=== PATIENT | male | born 1955 | race Caucasian/White ===

== ENCOUNTER 2024-11-03 08:38 | Outpatient (CLI) | payer MEDICARE, OTHER, SELFPAY ==
--- OUTSIDE RECORDS SUMMARY | 2024-11-03 08:46 | XMS_ITS | Encounter Summary ---
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 us Historical Provider Final Res ult documented in this encounter Visit Diagnoses Not on filedocumented in this encounter Additional Health Concerns Infection Onset Date Last Indicated Resolved Time COVID: Suspected 01/18/2022 01/18/2022 01/18/2022 1:54 PM CDT documented as of this encounter Care Teams Wheel Cleaner Relationship Specialty Start Date End Date Referral, Self PCP - General 03/10/18 04/19/19 Carmen Longoria MD [address] [address] [facility] [address] [place] [id number] PCP - General Internal Medicine 04/20/19 documented as of this encounter
--- OUTSIDE RECORDS SUMMARY | 2024-11-03 08:46 | XMS_ITS | Encounter Summary ---
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 us Historical Provider Final Res ult documented in this encounter Visit Diagnoses Not on filedocumented in this encounter Additional Health Concerns Infection Onset Date Last Indicated Resolved Time COVID: Suspected 01/18/2022 01/18/2022 01/18/2022 1:54 PM CDT documented as of this encounter Care Teams Ice Cream Mixer Relationship Specialty Start Date End Date Referral, Self PCP - General 03/10/18 04/19/19 Carmen Longoria MD [address] [facility] [address] [place] [id number] PCP - General Internal Medicine 04/20/19 documented as of this encounter
--- OUTSIDE RECORDS SUMMARY | 2024-11-03 08:46 | XMS_ITS | Encounter Summary ---
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 us Historical Provider [facility] JOSEFINA MICHEL Final Result documented in this encounter Visit Diagnoses Not on filedocumented in this encounter Additional Health Concerns Infection Onset Date Last Indicated Resolved Time COVID: Suspected 01/18/2022 01/18/2022 01/18/2022 1:54 PM CDT documented as of this encounter Care Teams Health Care / Medical Job Titles Relationship Specialty Start Date End Date Referral, Self PCP - General 03/10/18 04/19/19 Carmen Longoria MD [facility] [address] [facility] [address] [place] [id number] PCP - General Internal Medicine 04/20/19 documented as of this encounter
--- OUTSIDE RECORDS SUMMARY | 2024-11-03 08:46 | XMS_ITS | Referral Summary ---
Author Organization [facility] [address] [place] [address] Care Team Providers Care Ply Splicer Name Role Phone Carmen Longoria MD Primary Care Provider [phone] Encounters Date Type Department Care Team Description 10/26/2024 Telephone [facility] Medical [facility] Internal Medicine [address] [place] [phone] Carmen Longoria MD Medical Question/Miscellaneous 08/10/2024 Telephone [facility] Medical [facility] Internal Medicine [address] [place] [phone] Carmen Longoria MD 08/09/2024 Telephone [facility] Internal Medicine [address] [place] [phone] Carmen Longoria MD 08/09/2024 1:00 PM DIRECTOR INTEGRATED Office Visit [facility] Medical [facility] Internal Medicine [address] [place] [phone] Carmen Longoria MD Uncontrolled type 2 diabetes mellitus with hyperglycemia (HCC) (Primary Dx); LUIS (obstructive sleep apnea); Mild episode of recurrent major depressive disorder; Essential hypertension; BMI 37.0-37.9, adult; Morbid obesity (HCC); Bilateral leg edema from Last 3 Months Allergies Active Allergy Reactions Criticality Noted Date Comments Amoxicillin-Pot Clavulanate Diarrhea,Hallucinati ons,Nausea And Vomiting Medium 05/20/2013 Miconazole Unknown 11/03/2018 Miconazole Nitrate Unknown 11/03/2018 Niacin Unknown 11/03/2018 Rosuvastatin Other (See comments) Low 10/15/2020 20 mg muscle aches Medications aspirin 81 mg tablet Take 1 tablet (81 mg total) by mouth Active cholecalcifer ol (VITAMIN D-3) 2,000 unit tablet Take by mouth. Act kymberly cyanocobalami n (Vitamin B-12) 1,000 mcg tabletIndicat ions:Preventi on of Vitamin B12 Deficiency Take 1 tablet (1,000 mcg total) by mouth daily Active glucosamine-c hondroitin 500-400 mg capsule Take 1 capsule by mouth Active multivitamin tabletIndicat ions:Vitamin Deficiency Prevention Take 1 tablet by mouth Active naproxen (NAPROSYN) 500 mg tablet TAKE 1 TABLET BY MOUTH TWICE A DAY WITH FOOD 60 tablet 2 10/17/19 20 Active omega-3 fatty acids 1,000 mg capsule Take by mouth Activ e vit A/C/E ac/ZnOx/cupri c oxide (EYE VITAMIN AND MINERALS ORAL) Take by mouth Active valsartan-hyd rochlorothiaz henry (DIOVAN-HCT) 320-25 mg per tablet TAKE 1 TABLET BY MOUTH EVERY DAY 100 tablet 1 05/28/20 24 Active doxazosin (CARDURA) 8 mg tablet TAKE 1 TABLET BY MOUTH NIGHTLY 100 tablet 1 05/28/20 24 Active pen needle, diabetic (BD Ultra-Fine Short Pen Needle) 31 gauge x 5/16 needle USE TO INJECT TRESIBA ONCE DAILY 100 each 3 06/14/20 24 Active atorvastatin (LIPITOR) 40 mg tablet TAKE 1 TABLET BY MOUTH EVERY DAY 90 tablet 07/12/20 24 Active vortioxetine (Trintellix) 20 mg tablet Take 1 tablet (20 mg total) by mouth daily 90 tablet 1 08/09/19 25 Active semaglutide (Ozempic) 0.25 mg or 0.5 mg (2 mg/3 mL) pen injector injection Inject 0.5 mg under the skin once a week 3 mL 5 08/09/19 25 Active insulin glargine (TOUJEO) 300 unit/mL (1.5 mL) pen for injection INJECT 22 UNITS SUBCUTANEOUSLY EVERY DAY 4.5 mL 1 09/07/19 25 Active amLODIPine (NORVASC) 10 mg tablet TAKE 1 TABLET BY MOUTH EVERY DAY 90 tablet 1 10/14/19 25 Active lurasidone (LATUDA) 20 mg tablet TAKE 1 TABLET BY MOUTH EVERY DAY 90 tablet 1 10/14/19 25 Active montelukast (SINGULAIR) 10 mg tablet TAKE 1 TABLET BY MOUTH EVERY DAY 90 tablet 10/15/19 25 Active lurasidone (LATUDA) 20 mg tablet TAKE 1 TABLET BY MOUTH EVERY DAY 90 tablet 1 04/18/20 24 2024 Discontinued amLODIPine (NORVASC) 10 mg tablet TAKE 1 TABLET BY MOUTH EVERY DAY 90 tablet 1 04/18/20 24 2024 Discontinued montelukast (SINGULAIR) 10 mg tablet TAKE 1 TABLET BY MOUTH EVERY DAY 90 tablet 05/31/20 24 2024 Discontinued Active Problems Problem Noted Date Diagnosed Date Bilateral leg edema 08/09/2024 Assessment & Plan (08/09/2024 1:40 PM DIRECTOR INTEGRATED): Patient with trace bilateral leg edema most likely secondary to amlodipine. Patient is asymptomatic so we will not make any changes in his medications Other male erectile dysfunction 01/05/2024 Assessment & Plan (01/05/2024 10:26 AM CDT): Patient with erectile dysfunction. He tried Viagra 25 mg daily and that did not help. He increase dose to 50 mg and he had some erection. Patient continues to have problem keeping erection. We will increase the dose of Viagra to 100 mg p.r.n. and instructions on how to take the medication was discussed and the patient will call for persistent symptoms. Nonrheumatic aortic (valve) stenosis 10/30/2023 Assessment & Plan (10/30/2023 8:54 AM CDT): Asymptomatic and followed by the provider network analyst Onychomycosis 10/14/2021 Assessment & Plan (10/14/2021 3:36 PM CDT): Patient will be started on Diflucan 100 mg once a week for 4 months Morbid obesity 06/03/2021 Assessment & Plan (08/09/2024 1:38 PM DIRECTOR INTEGRATED): BMI Follow-up includes: nutrition counseling. The patient was advised to exercise 5 times a week for 30 minutes each time. We discussed low calorie diet. Discussed lifestyle changes. Assessment & Plan (10/30/2023 7:38 AM CDT): BMI Follow-up includes: nutrition counseling. The patient was advised to exercise 5 times a week for 30 minutes each time. We discussed low calorie diet. Discussed lifestyle changes. Assessment & Plan (04/03/2023 7:47 AM CDT): BMI Follow-up includes: nutrition counseling. The patient was advised to exercise 5 times a week for 30 minutes each time. We discussed low calorie diet. Discussed lifestyle changes. Assessment & Plan (12/03/2022 12:15 PM CDT): BMI Follow-up includes: nutrition counseling. The patient was advised to exercise 5 times a week for 30 minutes each time. We discussed low calorie diet. Discussed lifestyle changes. Assessment & Plan (07/03/2022 7:58 AM DIRECTOR INTEGRATED): BMI Follow-up includes: nutrition counseling. The patient was advised to exercise 5 times a week for 30 minutes each time. We discussed low calorie diet. Discussed lifestyle changes. Assessment & Plan (02/13/2022 10:49 AM CDT): BMI Follow-up includes: nutrition counseling. The patient was advised to exercise 5 times a week for 30 minutes each time. We discussed low calorie diet. Discussed lifestyle changes. Assessment & Plan (10/14/2021 3:36 PM CDT): BMI Follow-up includes: nutrition counseling. The patient was advised to exercise 5 times a week for 30 minutes each time. We discussed low calorie diet. Discussed lifestyle changes. Assessment & Plan (06/03/2021 11:38 AM DIRECTOR INTEGRATED): BMI Follow-up includes: nutrition counseling. The patient was advised to exercise 5 times a week for 30 minutes each time. We discussed low calorie diet. Discussed lifestyle changes. Uncontrolled type 2 diabetes mellitus with hyper glycemia 03/20/2021 Assessment & Plan (08/09/2024 8:05 AM DIRECTOR INTEGRATED): Hemoglobin A1c in July 2024 was 7.0. Continue current medications, discussed low carbohydrate diet, advised to exercise on regular basis, advised to have annual eye exam. We will continue to monitor. Assessment & Plan (07/03/2022 12:29 PM DIRECTOR INTEGRATED): Continue current medications, will add mounjaro 2.5 mg subQ once a week for 4 weeks then 5 mg once a week. Side effects were explained, discussed low carbohydrate diet, advised to exercise on regular basis, advised to have annual eye exam. We will continue to monitor. Assessment & Plan (02/13/2022 10:49 AM CDT): Continue current medications, discussed low carbohydrate diet, advised to exercise on regular basis, advised to have annual eye exam. We will continue to monitor. Assessment & Plan (10/14/2021 3:35 PM CDT): Blood sugar improved significantly. Hemoglobin A1c 7.2. Will continue with current medications. Encouraged low calorie diet and weight loss. Follow-up with lodging facilities manager Assessment & Plan (06/03/2021 11:37 AM DIRECTOR INTEGRATED): Increase Tresiba to 35 units daily. Discussed the importance of diet and exercise and weight loss. Call Accu-Chek readings in 1 week. Repeat A1c before next visit. Advised to have annual eye exam. Assessment & Plan (03/21/2021 2:09 PM CDT): Increase Tresiba to 25 units daily. Continue diet and exercise. Advised to have annual eye exam. He will continue to check his sugar 3 times daily and call us with readings in about 1 week. Will obtain hemoglobin A1c before next visit in couple of months. Lipoma of neck 01/30/2021 Assessment & Plan (01/30/2021 3:14 PM CDT): Patient most likely has lipoma in the neck area. I offered him to see a plastic surgery for excision but he wants to wait on that. BMI 34.0-34.9,adult 01/29/2021 Assessment & Plan (01/30/2021 3:13 PM CDT): BMI Follow-up includes: nutrition counseling. The patient was advised to exercise 5 times a week for 30 minutes each time. We discussed low calorie diet. Discussed lifestyle changes. Chronic rhinitis 02/28/2020 Assessment & Plan (02/28/2020 1:46 PM CDT): Advised to take [place] or Zyrtec on daily basis. He can try as well Flonase nasal spray 1 spray daily. Functional diarrhea 08/22/2019 Encounter for hepatitis C sc reening test for low risk patient 08/22/2019 Mild episode of recurrent major depressive disor mari 05/17/2019 Assessment & Plan (08/09/2024 8:05 AM DIRECTOR INTEGRATED): Controlled on Trintellix and Latuda Assessment & Plan (03/29/2024 7:49 AM CDT): Controlled on Trintellix and Latuda Assessment & Plan (10/30/2023 8:51 AM CDT): Controlled on Trintellix and Latuda Assessment & Plan (04/03/2023 7:47 AM CDT): Controlled on Trintellix Assessment & Plan (12/03/2022 12:15 PM CDT): Controlled on Trintellix Assessment & Plan (07/03/2022 7:58 AM DIRECTOR INTEGRATED): Controlled on current medications and no suicidal ideations Assessment & Plan (02/13/2022 10:49 AM CDT): Controlled on Trintellix Assessment & Plan (10/14/2021 3:35 PM CDT): Managed by the psychiatrist Assessment & Plan (06/03/2021 11:36 AM DIRECTOR INTEGRATED): Managed by the Psychiatry Assessment & Plan (03/21/2021 2:08 PM CDT): Patient said that he feels much better on Trintellix. Will continue the medication Assessment & Plan (01/30/2021 3:11 PM CDT): Patient has recurrent depression. Will stop Lexapro slowly and start him on Trintellix 10 mg daily for 2 weeks then 20 mg daily and will make him a referral to see a psychiatrist for further evaluation. The patient understands to go to the emergency room if he has suicidal ideation Assessment & Plan (06/29/2020 11:41 AM DIRECTOR INTEGRATED): Controlled on medications Assessment & Plan (02/28/2020 1:45 PM CDT): We will increase Lexapro to 20 mg daily and he will call in 1 month for persistent symptoms Assessment & Plan (05/17/2019 3:29 PM CDT): The patient feels much better since he was started on Lexapro. He is controlled and in remission and continue with current treatment Insomnia 09/22/2017 Chronic nonseasonal allergic rhinitis due to robin kate 07/09/2017 Assessment & Plan (01/30/2021 3:10 PM CDT): Asymptomatic Assessment & Plan (06/29/2020 11:40 AM DIRECTOR INTEGRATED): Patient was advised to follow up with the ENT specialist. Continue to use said reason and Flonase. Continue to use a humidifier Assessment & Plan (01/05/2019 10:05 AM CDT): Continue Zyrtec p.r.n. Fatty liver 07/30/2016 Assessment & Plan (10/30/2023 7:37 AM CDT): Encouraged weight loss with diet and exercise to avoid complications Assessment & Plan (12/03/2022 12:15 PM CDT): Encouraged weight loss with diet and exercise to avoid complications Assessment & Plan (07/03/2022 7:58 AM DIRECTOR INTEGRATED): Encouraged weight loss with diet and exercise. Understands risk of liver cirrhosis. Assessment & Plan (02/13/2022 10:48 AM CDT): Encouraged weight loss with diet and exercise Assessment & Plan (10/14/2021 3:34 PM CDT): Discussed weight loss to avoid complications. Discussed exercise at least 5 days weekly. Discussed low calorie diet. Verbalized understand Assessment & Plan (06/29/2020 11:41 AM DIRECTOR INTEGRATED): Discussed weight loss with diet and exercise to avoid complications of fatty liver like liver cirrhosis Assessment & Plan (05/17/2019 3:27 PM CDT): Liver function test improved with weight loss Assessment & Plan (01/05/2019 10:06 AM CDT): The patient was advised to continue to exercise and watch his diet Dvrtclos of intest, part uns p, w/o perf or abscess w/o bleed 03/01/2016 Conductive hearing loss in left ear 02/01/2016 LUIS (obstructive sleep apnea) 10/24/2015 Assessment & Plan (08/09/2024 1:38 PM DIRECTOR INTEGRATED): Patient with history of sleep apnea. He could not tolerate CPAP machine in the past. Patient complains of persistent tiredness and fatigue and snoring. He likes to be evaluated again. Will make him a referral to see a sleep specialist Assessment & Plan (10/30/2023 8:51 AM CDT): Patient stated that he could not tolerate CPAP machine. Patient understands risks including hypertension and congestive heart failure etc.. Assessment & Plan (07/03/2022 7:58 AM DIRECTOR INTEGRATED): Patient uses CPAP machine on regular basis Assessment & Plan (02/13/2022 10:49 AM CDT): The patient uses CPAP machine on regular basis Assessment & Plan (10/14/2021 3:35 PM CDT): Patient uses CPAP machine on regular basis Assessment & Plan (06/03/2021 11:36 AM DIRECTOR INTEGRATED): Patient uses CPAP machine on regular basis Assessment & Plan (01/30/2021 3:11 PM CDT): Patient uses CPAP machine on regular basis Assessment & Plan (06/29/2020 11:42 AM DIRECTOR INTEGRATED): Patient was advised to have evaluation by sleep specialist and repeat sleep study but he declined any understands the risks Assessment & Plan (02/28/2020 1:44 PM CDT): The patient uses CPAP machine on regular basis Assessment & Plan (05/17/2019 3:27 PM CDT): The patient uses CPAP machine on regular basis Assessment & Plan (01/05/2019 10:07 AM CDT): The patient uses CPAP machine regular basis Essential hypertension 05/20/2013 Assessment & Plan (08/09/2024 8:05 AM DIRECTOR INTEGRATED): Continue current medications. Discussed low-salt diet. Discussed exercise on regular basis. Will continue to monitor Assessment & Plan (03/29/2024 7:49 AM CDT): Continue current medications. Discussed low-salt diet. Discussed exercise on regular basis. Will continue to monitor Assessment & Plan (10/30/2023 8:53 AM CDT): Blood pressure is high. We will increase doxazosin to 8 mg q.h.s.. Continue valsartan hydrochlorothiazide and amlodipine. Encouraged weight loss and low-salt diet. Assessment & Plan (04/03/2023 8:47 AM CDT): Continue current medications. Stop hydralazine. Discussed low-salt diet. Discussed exercise on regular basis. Will continue to monitor Assessment & Plan (12/03/2022 12:15 PM CDT): Continue current medications. Discussed low-salt diet. Discussed exercise on regular basis. Will continue to monitor Assessment & Plan (07/03/2022 12:28 PM DIRECTOR INTEGRATED): Continue current medications. We will add Cardura 4 mg q.h.s. for better control of hypertension. Discussed low-salt diet. Discussed exercise on regular basis. Will continue to monitor Assessment & Plan (02/13/2022 10:48 AM CDT): Patient stop taking hydralazine on his own. We discussed the importance of compliance with medications. Resume hydralazine 100 mg b.i.d.. Discussed the importance of weight loss with diet and exercise. Discussed low-salt diet. Assessment & Plan (10/14/2021 3:34 PM CDT): Add hydralazine 100 mg b.i.d. for better control of hypertension. Continue other medications. Discussed the importance of weight loss and low-salt diet Assessment & Plan (06/03/2021 11:36 AM DIRECTOR INTEGRATED): Increase amlodipine to 10 mg daily. Continue the other medications. Discussed low-salt diet. Discussed weight loss again. Assessment & Plan (01/30/2021 3:10 PM CDT): Continue current medications. Discussed low-salt diet. Discussed exercise on regular basis. Will continue to monitor Assessment & Plan (06/29/2020 11:41 AM DIRECTOR INTEGRATED): Continue current medications. Discussed low-salt diet. Discussed exercise on regular basis. Will continue to monitor Assessment & Plan (02/28/2020 1:44 PM CDT): Continue current medications. Discussed low-salt diet. Discussed exercise on regular basis. Will continue to monitor Assessment & Plan (05/17/2019 3:28 PM CDT): Cut down Norvasc to 5 mg daily. Continue low-salt diet. Continue Diovan hydrochlorothiazide Assessment & Plan (01/05/2019 10:07 AM CDT): Blood pressure is down so we will stop doxazosin and continue with other blood pressure medications and will continue to monitor Gout 05/20/2013 Assessment & Plan (02/28/2020 1:44 PM CDT): Asymptomatic and the patient watches his diet Assessment & Plan (05/17/2019 3:27 PM CDT): Asymptomatic Assessment & Plan (01/05/2019 10:06 AM CDT): The patient is asymptomatic Mixed hyperlipidemia 05/20/2013 Assessment & Plan (08/09/2024 8:05 AM DIRECTOR INTEGRATED): Controlled on current medications. Continue low-fat diet. Will continue to monitor . Assessment & Plan (03/29/2024 7:49 AM CDT): Controlled on current medications. Continue low-fat diet. Will continue to monitor . Assessment & Plan (10/30/2023 7:38 AM CDT): Controlled on current medications. Continue low-fat diet. Will continue to monitor . Assessment & Plan (04/03/2023 7:47 AM CDT): Controlled on current medications. Continue low-fat diet. Will continue to monitor . Assessment & Plan (12/03/2022 12:15 PM CDT): Controlled on current medications. Continue low-fat diet. Will continue to monitor . Assessment & Plan (07/03/2022 7:58 AM DIRECTOR INTEGRATED): Controlled on current medications. Continue low-fat diet. Will continue to monitor . Assessment & Plan (02/13/2022 10:49 AM CDT): Controlled on current medications. Continue low-fat diet. Will continue to monitor . Assessment & Plan (10/14/2021 3:35 PM CDT): Cholesterol is not optimal but he said that he will watch his diet more closely. He also needs to lose weight. Discussed the importance of diet and exercise. Assessment & Plan (06/03/2021 11:36 AM DIRECTOR INTEGRATED): Controlled on current medications. Continue low-fat diet. Will continue to monitor . Assessment & Plan (03/21/2021 2:09 PM CDT): Continue current medications including Crestor and fish oil and we discussed the importance of weight loss with diet and exercise Assessment & Plan (01/30/2021 3:11 PM CDT): Controlled on current medications. Continue low-fat diet. Will continue to monitor . Assessment & Plan (06/29/2020 11:41 AM DIRECTOR INTEGRATED): Low-fat diet and weight loss and advised to have the blood work done Assessment & Plan (02/28/2020 1:44 PM CDT): Patient will continue with low-fat diet and will order blood work before next visit Assessment & Plan (05/17/2019 3:27 PM CDT): Controlled on Crestor Assessment & Plan (01/05/2019 10:06 AM CDT): Controlled on current medications. Continue low-fat diet. Will continue to monitor . Immunizations Immunization Administration Dates Next Due COVID-19 mRNA ([place]) 0.3 m L (30 mcg) vaccine (12 years and up) 05/17/2024,06/23/2023 Influenza Virus Vaccine Trivalent Mdv 05/17/2024 Influenza, Quad, Adjuvantate d, Intramuscular 06/23/2023 Influenza, Quadrivalent, Maria Teresa l Culture-based MDCK, Preservative Free, Antibiotic Free, Intramuscular 06/04/2022,05/05/2017 Influenza, Quadrivalent, Spl it, Intramuscular 05/12/2018 Influenza, Quadrivalent, Spl it, Preservative Free, Intramuscular 06/03/2021,03/24/2020,10/08/2019,05/27 Influenza, Trivalent, Cell Culture-based MDCK, Preservative Free, Antibiotic Free, Intramuscular 05/05/2017 Influenza, Trivalent, Preser vative Free, Intramuscular 05/28/2016 Influenza, Trivalent, Split, Preservative Free, Intradermal 05/21/2013 Influenza, Unspecified 06/04/2022,2019,10/08/2019,05/12,05/05/2017,05/28/2016,05/27/2016 ,05/21/2013 Moderna SARS-CoV-2 Monovalen t Vaccination (12+ YRS) 06/13/2021 Pneumococcal Conjugate Pcv20 12/03/2022 Pneumococcal Polysaccharide PPV23 05/21/2013 Tdap 12/26/2021,12/16/2015 ZOSTER Recombinant 09/29/2020,12/29/2017 Social History Tobacco Use Types Packs/Day Years Used Date Smoking Tobacco: Never Passive Smoke Exposure: Never Tobacco Cessation:Counseling Given: Not Answered Alcohol Use Standard Drinks/Week Comments Yes 0 (1 standard drink = 0.6 oz pur e alcohol) socially AUDIT-C Answer Date Recorded Q1: How often do you have a drink containing alcohol? Never 08/09/2024 Q2: How many drinks containi ng alcohol do you have on a typical day when you are drinking? Patient does not drink Q3: How often do you have si x or more drinks on one occasion? Never 08/09/2024 PHQ-2 Answer Date Recorded PHQ-2 Total Score (If total score is 3 or more points, staff should administer the PHQ-9) 0 08/09/2024 Sex and Gender Information Value Date Recorded Sex Assigned at Not on file Legal Sex Male 8:57 AM DIRECTOR INTEGRATED Gender Identity Not on file Sexual Orientation Not on file Last Filed Vital Signs Vital Sign Reading Time Taken Comments Blood Pressure 122/70 08/09/2024 1:09 PM DIRECTOR INTEGRATED Pulse 79 08/09/2024 1:09 PM DIRECTOR INTEGRATED Temperature 36.8 C (98.3 F) 08/09/2024 1:09 PM DIRECTOR INTEGRATED Respiratory Rate 16 08/09/2024 1:09 PM DIRECTOR INTEGRATED Oxygen Saturation 97% 08/09/2024 1:09 PM DIRECTOR INTEGRATED Inhaled Oxygen Concentration - - Weight 112.9 kg (249 lb) 08/09/2024 1:09 PM DIRECTOR INTEGRATED Height 172.7 cm (5' 8 ) 08/09/2024 1:09 PM DIRECTOR INTEGRATED Body Mass Index 37.86 08/09/2024 1:09 PM DIRECTOR INTEGRATED Plan of Treatment Not on file Procedures Procedure Name Priority Date/Time Associated Diagnosis Comments PSA SCREEN Routine 08/06/2024 8:42 AM DIRECTOR INTEGRATED Prostate cancer screening ALBUMIN CREATININE RATIO, URINE Routine 08/06/2024 8:42 AM DIRECTOR INTEGRATED Controlled type 2 diabetes mellitus without complication, without long-term current use of insulin (HCC) HEMOGLOBIN A1C Routine 08/06/2024 8:42 AM DIRECTOR INTEGRATED Controlled type 2 diabetes mellitus without complication, without long-term current use of insulin (HCC) LIPID PANEL Routine 08/06/2024 8:42 AM DIRECTOR INTEGRATED Controlled type 2 diabetes mellitus without complication, without long-term current use of insulin (HCC) COMPREHENSIVE METABOLIC PANEL Routine 08/06/2024 8:42 AM DIRECTOR INTEGRATED Controlled type 2 diabetes mellitus without complication, without long-term current use of insulin (HCC) TOTAL TESTOSTERONE Routine 08/06/2024 8: 41 AM DIRECTOR INTEGRATED Controlled type 2 diabetes mellitus without complication, without long-term current use of insulin (HCC) DIABETES EYE EXAM Routine 07/16/2023 2:24 PM DIRECTOR INTEGRATED DIABETIC FOOT EXAM Routine 01/30/2021 HEPATITIS C ANTIBODY Routine 08/22/2019 1:21 PM DIRECTOR INTEGRATED Encounter for hepatitis C screening test for low risk patient COLONOSCOPY Routine 12/04/2017 from Last 3 Months or Most Recently Relevant to Health Maintenance Results * PSA screen (08/06/2024 8:42 AM DIRECTOR INTEGRATED) PSA 0.23 < OR = 4.00 ng/mL [facility] Comment: The total PSA value from this assay system is standardized against the WHO standard. The test result will be approximately 20% lower when compared to the equimolar-standardized total PSA (Jac Leno). Comparison of serial PSA results should be interpreted with this fact in mind. This test was performed using the Siemens chemiluminescent method. Values obtained from different assay methods cannot be used interchangeably. PSA levels, regardless of value, should not be interpreted as absolute evidence of the presence or absence of disease. Blood 08/06/2024 8:42 AM DIRECTOR INTEGRATED 08/06/2024 8:43 AM DIRECTOR INTEGRATED Narrative [facility] - 08/07/2024 6:24 AM DIRECTOR INTEGRATED FASTING:YES FASTING: YES Carmen Longoria MD LAB BLOOD ORDERABLES Final Result [facility] [address] [place] [address] * (ABNORMAL) Albumin Creatinine Ratio, Urine (08/06/2024 8:42 AM DIRECTOR INTEGRATED) Creatinine, ur 254 20 - 320 mg/dL [facility] Microalbumin, ur 14.8 See Note: mg/dL [facility] Comment: Reference Range: Reference Range Not established Microalbumin/creat ratio 58(H) <30 mg/g creat [facility] [facility] Comment: The ADA defines abnormalities in albumin excretion as follows: Albuminuria Category Result (mg/g creatinine) Normal to Mildly increased <30 Moderately increased 30-299 Severely increased > OR = 300 The ADA recommends that at least two of three specimens collected within a 3-6 month period be abnormal before considering a patient to be within a diagnostic category. Urine 08/06/2024 8:42 AM DIRECTOR INTEGRATED 08/06/2024 8:43 AM DIRECTOR INTEGRATED Narrative [facility] - 08/07/2024 6:24 AM DIRECTOR INTEGRATED FASTING:YES FASTING: YES Carmen Longoria MD LAB URINE ORDERABLES Final Result [facility] [address] [place] [address] * (ABNORMAL) Hemoglobin A1c (08/06/2024 8:42 AM DIRECTOR INTEGRATED) Pathologist [facility] Hgb A1C 7.0(H) <5.7 % of total Hgb [facility] Comment: For someone without known diabetes, a hemoglobin A1c value of 6.5% or greater indicates that they may have diabetes and this should be confirmed with a follow-up test. For someone with known diabetes, a value <7% indicates that their diabetes is well controlled and a value greater than or equal to 7% indicates suboptimal control. A1c targets should be individualized based on duration of diabetes, age, comorbid conditions, and other considerations. Currently, no consensus exists regarding use of hemoglobin A1c for diagnosis of diabetes for children. Blood 08/06/2024 8:42 AM DIRECTOR INTEGRATED 08/06/2024 8:43 AM DIRECTOR INTEGRATED Narrative [facility] - 08/07/2024 6:24 AM DIRECTOR INTEGRATED FASTING:YES FASTING: YES Carmen Longoria MD LAB BLOOD ORDERABLES Final Result [facility] [address] [place] [address] * (ABNORMAL) Lipid panel (08/06/2024 8:42 AM DIRECTOR INTEGRATED) Cholesterol 130 <200 mg/dL [facility] HDL 38(L) > OR = 40 mg/dL [facility] Triglycerides 95 <150 mg/dL [facility] LDL 74 mg/dL (calc) [facility] Comment: Reference range: <100 Desirable range <100 mg/dL for primary prevention; <70 mg/dL for patients with CHD or diabetic patients with > or = 2 CHD risk factors. LDL-C is now calculated using the Medardo-Elder calculation, which is a validated novel method providing better accuracy than the Friedewald equation in the estimation of LDL-C. Medardo SS et al. MARCELA. 2013;310(19): 0631-6183 (http://education.Immunetics/faq/WHS066) Chol/HDL ratio 3.4 <5.0 (calc) [facility] Non-HDL, (LDL+VLDL) 92 <130 mg/dL (calc) [facility] Comment: For patients with diabetes plus 1 major ASCVD risk factor, treating to a non-HDL-C goal of <100 mg/dL (LDL-C of <70 mg/dL) is considered a therapeutic option. Blood 08/06/2024 8:42 AM DIRECTOR INTEGRATED 08/06/2024 8:43 AM DIRECTOR INTEGRATED Narrative [facility] - 08/07/2024 6:24 AM DIRECTOR INTEGRATED FASTING:YES FASTING: YES Carmen Longoria MD LAB BLOOD ORDERABLES Final Result [facility] [address] [place] [address] * (ABNORMAL) Comprehensive metabolic panel (08/06/2024 8:42 AM DIRECTOR INTEGRATED) [facility] Glucose 129(H) 65 - 99 mg/dL [facility] Comment: Fasting reference interval For someone without known diabetes, a glucose value >125 mg/dL indicates that they may have diabetes and this should be confirmed with a follow-up test. BUN 16 7 - 25 mg/dL [facility] Creatinine 0.91 0.70 - 1.35 mg/dL [facility] eGFR 93 > OR = 60 mL/min/1.7 3m2 [facility] BUN/creat ratio SEE NOTE: 6 - 22 (calc) [facility] Comment: Not Reported: BUN and Creatinine are within reference range. Sodium 140 135 - 146 mmol/L [facility] Potassium, pl 3.9 3.5 - 5.3 mmol/L [facility] Chloride 101 98 - 110 mmol/L [facility] CO2 30 20 - 32 mmol/L [facility] Calcium 9.7 8.6 - 10.3 mg/dL [facility] Protein, sr 6.9 6.1 - 8.1 g/dL [facility] Albumin 4.7 3.6 - 5.1 g/dL [facility] GLOBULIN 2.2 1.9 - 3.7 g/dL (calc) [facility] Alb/glob ratio 2.1 1.0 - 2.5 (calc) [facility] Bilirubin, total 0.7 0.2 - 1.2 mg/dL [facility] Alk phos 67 35 - 144 U/L [facility] AST 41(H) 10 - 35 U/L [facility] ALT (SGPT) 62(H) 9 - 46 U/L [facility] Blood 08/06/2024 8:42 AM DIRECTOR INTEGRATED 08/06/2024 8:43 AM DIRECTOR INTEGRATED Narrative [facility] - 08/07/2024 6:24 AM DIRECTOR INTEGRATED FASTING:YES FASTING: YES Carmen Longoria MD LAB BLOOD ORDERABLES Final Result Performing Organization Address [facility] Co de Phone Number [facility] [address] [place] [address] * Total testosterone (08/06/2024 8:41 AM DIRECTOR INTEGRATED) Testosterone 418 250 - 827 ng/dL [facility] Blood 08/06/2024 8:41 AM DIRECTOR INTEGRATED 08/06/2024 8:41 AM DIRECTOR INTEGRATED Carmen Longoria MD LAB BLOOD ORDERABLES Final Result Performing Organization Address [facility] Co de Phone Number [facility] [address] [place] [address] * HM DIABETES EYE EXAM (07/16/2023 2:24 PM DIRECTOR INTEGRATED) SCRIBED HM DIABETIC DILATED EYE EXAM Normal Historical Provider HEALTH MAINTENANCE Final Result * Diabetic Foot Exam (01/30/2021) Historical Provider HEALTH MAINTENANCE Final Result * Hepatitis C antibody (08/22/2019 1:21 PM DIRECTOR INTEGRATED) Hep C Ab NON-REACT KYMBERLY NON-REACT KYMBERLY [facility] [place] SIGNAL TO CUT-OFF 0.01 <1.00 [facility] [place] Comment: HCV antibody was non-reactive. There is no laboratory evidence of HCV infection. In most cases, no further action is required. However, if recent HCV exposure is suspected, a test for HCV RNA (test code 96428) is suggested. For additional information please refer to http://education.Appvance/faq/GBB94e9 (This link is being provided for informational/ educational purposes only.) Blood specimen (specimen) 08/22/2019 1:21 PM DIRECTOR INTEGRATED 08/22/2019 1:21 PM DIRECTOR INTEGRATED Narrative Resulting Agency Comment Performing Organization Information: Site ID: [place] Name: [facility] Address: [address] [place] [address] [place] [address] Director: Daniel Mckinley D.O., MPH Joanne Fernandez NP LAB MICROBIOLOGY - GENERAL OR DERABLES Final Result [facility] [place] * COLONOSCOPY (12/04/2017) Pathologist [facility] Colonoscopy Normal Comment:hemicolectomy and he is followed by assembly worker in Historical Provider HEALTH MAINTENANCE Final Result from Last 3 Months or Most Recently Relevant to Health Maintenance Insurance [employer] [facility] [place] [address] MEDICARE [facility] MEDICARE [facility] Advance Directives For more information, please contact: [phone] Documents on File Type Date Recorded 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 [place] [address] [place] [address] PCP - General Internal Medicine 04/20/19
--- OUTSIDE RECORDS SUMMARY | 2024-11-03 08:46 | XMS_ITS | Clinical Summary ---
Author Organization [facility] Address [address] [place] [address] Care Team Providers Care Machine Icer Name Role Phone Carmen Longoria MD Primary Care Provider [phone] Source Comments [facility],non-owned Affiliates and Associated Physician Practices is amultiple site organization consisting of ambulatory clinics and hospital sitesin [place], [place], [place] and [place]. This disclosure is being madepursuant to the Care Everywhere program and may not contain all information available regarding this patient. Last updated 18.[facility] [employer] Allergies Active Allergy Reactions Criticality Noted Date Comments Amoxicillin-Pot Clavulanate Other,Vomiting 08/2021 hallucinations Immunizations Name Administration Dates Next Due TDAP (7yrs+) 12/26/2021 Social History Tobacco Use Types Packs/Day Years Used Date Smoking Tobacco: Never Assessed Sex and Gender Information Value Date Recorded Sex Assigned at Not on file Gender Identity Not on file Sexual Orientation Not on file Last Filed Vital Signs Vital Sign Reading Time Taken Comments Blood Pressure 120/72 12/26/2021 9:06 PM CDT Pulse 72 12/26/2021 9:06 PM CDT Temperature 36.8 C (98.2 F) 12/26/2021 6:02 PM CDT Respiratory Rate 13 12/26/2021 9:06 PM CDT Oxygen Saturation 99% 12/26/2021 9:06 PM CDT Inhaled Oxygen Concentration - - Weight 113.4 kg (250 lb) 12/26/2021 6:02 PM CDT Height 172.7 cm (5' 8 ) 12/26/2021 6:02 PM CDT Body Mass Index 38.01 12/26/2021 6:02 PM CDT Plan of Treatment Health Maintenance Due Date Last Done Comments COLOGUARD (AGES 45-75) - COLON CA SCREENING 1957 COLON MONITORING 1957 COLONOSCOPY - COLON CA SCREENING 1957 CT COLONOGRAPHY - COLON CA SCREENING 1957 Colorectal Cancer Screening 1957 FIT - COLON CA SCREENING 1957 FLEX SIG - COLON CA SCREENING 1957 LIPID TESTING 1957 HEPATITIS C SCREENING 11/28/1975 PNEUMOCOCCAL VACCINE 50+ (1 of 1 - PCV) 12/03/2007 ZOSTER VACCINE (1 of 2) 12/03/2007 COVID-19 VACCINE (2 - season) 2024 06/13/2021 DEPRESSION SCREENING 07/27/2024 INFLUENZA VACCINE (Season Ended) 2025 06/03/2021, 03/24/2020, 10/08/2019, Additional history exists DTAP/TDAP/TD VACCINES (2 - Td or Tdap) 12/27/2031 12/26/2021 Respiratory Syncytial Virus (RSV) Vaccine Pt: or over 60 yrs (1 - 1-dose 75+ series) 2032 HEPATITIS B VACCINE Aged Out No longe r eligible based on patient's age to complete this topic HIB VACCINE Aged Out No longer eligi ble based on patient's age to complete this topic HPV VACCINE Aged Out No longer eligi ble based on patient's age to complete this topic MENINGOCOCCAL (Group B) VACCINE SHARED DECISION-MAKING Aged Out No longer eligible based on patient's age to complete this topic MENINGOCOCCAL GROUPS A/C/Y/W VACCINE Aged Out No longer eligible based on patient's age to complete this topic Care Teams Machine Icer Relationship Specialty Start Date End Date Carmen Longoria MD [address] [place] [address] PCP - General Internal Medicine 12/26/21
--- OUTSIDE RECORDS SUMMARY | 2024-11-03 08:46 | XMS_ITS | Clinical Summary ---
Author Organization [facility] Address [address] [place] [address] Phone Care Team Providers Care Gluing Machine Operator Automatic Name Role Phone Carmen Longoria MD Primary Care Provider [phone] Allergies Active Allergy Reactions Criticality Noted Date Comments Amoxicillin-Pot Clavulanate Diarrhea,Tr sea and Vomiting,Hallucination Low 05/20/2013 Medications omega-3 acid ethyl esters (OMACOR,LOVAZA) 1 gram Capsule Take 4 Gram by mouth daily. Active valsartan-hydro chlorothiazide (DIOVAN HCT) 160-25 mg tablet Take 1 Tab by mouth daily. Active aspirin (ECOTRIN EC) 81 mg Tablet, Delayed Release (E.C.) Take 81 mg by mouth daily. Active LACTOBACILLUS ACIDOPHILUS (PROBIOTIC ORAL) Take by mouth. Activ e ASCORBIC ACID (VITAMIN C ORAL) Take 1,000 mg by mouth. Active cholecalciferol , Vitamin D3, 2,000 unit Tablet Take by mouth. Activ e multivitamin (DAILY-PÉREZ) tablet Take 1 Tab by mouth daily. Active cyanocobalamin (vit B-12) 1,000 mcg tablet Take 2,500 mcg by mouth daily . Active beta carotene 25,000 unit Capsule Take by mouth daily. Active LISINOPRIL ORAL Take by mouth. Active amLODIPine (NORVASC) 10 mg tablet Take 10 mg by mouth daily. Active glucosamine-cho ndroitin (ARTHX DS) 500-400 mg Capsule Take 1 Capsule by mouth. Active loperamide (IMODIUM) 2 mg capsule Take 2 mg by mouth every 3 hours as needed for Diarrhea/Loose Stools. Active cetirizine (ZyrTEC) 1 mg/mL Solution Take 1 mg by mouth daily. Active doxazosin (CARDURA) 4 mg tablet Take 4 mg by mouth daily. Active naproxen (NAPROSYN) 500 mg tablet Take 500 mg by mouth 2 times daily with meals. Active atorvastatin (LIPITOR) 40 mg tablet Take 40 mg by mouth daily. Active insulin glargine U-300 conc (TOUJEO) 300 unit/mL pen syringe Inject 37 Units by subcutaneous injection daily with breakfast. Active semaglutide (Ozempic) 0.25 mg or 0.5 mg (2 mg/3 mL) Pen Injector Inject 0.5 mg by subcutaneous injection every 7 days. Active vortioxetine (Trintellix) 20 mg tablet Take 5 mg by mouth daily. Active lurasidone (Latuda) 40 mg Tablet tablet Take 40 mg by mouth daily with supper. Active Active Problems Problem Noted Date Diagnosed Date Wound infection after surgery 07/04/2013 Diverticulitis of colon (wit hout mention of hemorrhage)(562.11) 05/20/2013 Overview (05/20/2013): Followed by Dr wolf Unspecified essential hypertension 05/20/2013 HLD (hyperlipidemia) 05/20/2013 Gout 05/20/2013 Immunizations Immunization Administration Dates Next Due (PNEUMOVAX 23)(50 YRS UP) PN EUMOCOCCAL POLYSACCHARIDE (PPV23) 0.5 ML, IM 05/21/2013 Influenza Vaccine Split PF ID 05/21/2013 Family History Medical History Relation Name Comments Healthy Father Healthy Mother Relation Name Status Comments Father Mother Social History Tobacco Use Types Packs/Day Years Used Date Smoking Tobacco: Never Tobacco Cessation:Counseling Given: Not Answered Alcohol Use Standard Drinks/Week Comments Yes 0 (1 standard drink = 0.6 oz pur e alcohol) occassionally Sex and Gender Information Value Date Recorded Sex Assigned at Not on file Legal Sex Male 6:28 PM CDT Gender Identity Not on file Sexual Orientation Not on file Occupation Industry Job Start Date Job End Date Not on file Not on file Not on file Not on file Last Filed Vital Signs Vital Sign Reading Time Taken Comments Blood Pressure 138/58 10/27/2022 12:38 PM CDT Pulse 96 09/01/2013 10:59 AM HYPERCIL CORE TRANSFORMER ASSEMBLER Temperature 36.9 C (98.5 F) 09/18/2018 5:00 PM HYPERCIL CORE TRANSFORMER ASSEMBLER Respiratory Rate 16 09/18/2018 5:00 PM HYPERCIL CORE TRANSFORMER ASSEMBLER Oxygen Saturation 96% 09/18/2018 4:31 PM HYPERCIL CORE TRANSFORMER ASSEMBLER Inhaled Oxygen Concentration - - Weight 108.9 kg (240 lb) 10/27/2022 12:38 PM CDT Height 172.7 cm (5' 8 ) 10/27/2022 12:38 PM CDT Body Mass Index 36.49 10/27/2022 12:38 PM CDT Plan of Treatment Health Maintenance Due Date Last Done Comments DIABETES ANNUAL RETINAL EXAM 12/03/1975 DIABETES MICROALBUMIN ANNUAL SCREEN 12/03/1975 LDL CHOLESTEROL ANNUAL 12/03/1975 FIT-DNA Q 3 years 2002 FIT/FOBT Q 1 year 2002 Flex Sig/CT Colonography Q 5 years 2002 PNEUMOCOCCAL VACCINE 50+ YEA RS (2 of 2 - PCV) 05/21/2014 05/21/2013 RSV VACCINE (60+ or ) (1 - Risk 60-74 years 1-dose series) 2017 DIABETES HBA1C Q 6 MONTHS 12/29/2022 06/30/2022, DIABETES ANNUAL FOOT EXAM 02/13/2023 02/13/2022 COLORECTAL SCREENING 06/07/2023 06/07/2013 Colorectal Cancer Screening 06/07/2023 INFLUENZA VACCINE (#1) 2024 , 03/24/2020, 10/08/2019, Additional history exists COVID-19 Vaccine ( - 2023-2 5 season) 2024 06/13/2021, 10/23/2020, 10/03/2020 DTAP/TDAP/TD VACCINES (3 - T d or Tdap) 12/27/2031 12/26/2021, 12/16/2015 ZOSTER VACCINE Completed 09/29/2020, 12/29/2017 Medical Devices Implanted Type Area Technical Advisor Device Identifier Shelf Expiration Date Model / Serial / Lot Barrier Seprafilm 5x6in [id number] - [id number] Implanted:Qty : 1 on 06/21/2013 by Kal Castaneda MD at [facility] Adhesion Barrier N/A: Abdomen GENZYME- BIOSURG 01/23/[id number] -[id number] Insurance [place] BLUE PREFERRED Advance Directives For more information, please contact: [phone] * Full Code (Latest Code Status on File) Date Activated Date Inactivated Comments 06/21/2013 9:04 PM 06/27/2013 11:04 AM * Full Code Date Activated Date Inactivated Comments 06/21/2013 1:16 PM 06/21/2013 9:04 PM * Full Code Date Activated Date Inactivated Comments 06/21/2013 1:14 PM 06/21/2013 1:16 PM * Full Code Date Activated Date Inactivated Comments 05/20/2013 3:44 PM 05/22/2013 2:11 PM * Full Code Date Activated Date Inactivated Comments 05/20/2013 3:21 PM 05/20/2013 3:44 PM Care Teams Gluing Machine Operator Automatic Relationship Specialty Start Date End Date Carmen Longoria MD [address] [address] PCP - General Internal Medicine 10/05/12
--- OUTSIDE RECORDS SUMMARY | 2024-11-03 08:46 | XMS_ITS | Encounter Summary ---
Author Organization [facility] Healthcare Address [address] [place] [address] Care Team Providers Care Pan Puller Name Role Phone Carmen Longoria MD Primary Care Provider [phone] Reason for Visit * Reason Onset Date Comments Medical Question/Miscellaneous 10/26/2024 Encounter Details Date Type Department Care Team (Late st Contact Info) Description 10/26/2024 Telephone [facility] Medical Group Internal Medicine [address] [place] [address] Carmen Longoria MD [address] [place] [address] Medical Question/Miscellaneous Social History Tobacco Use Types Packs/Day Years Used Date Smoking Tobacco: Never Passive Smoke Exposure: Never Alcohol Use Standard Drinks/Week Comments Yes 0 [...] on file Legal Sex Male 8:57 AM CRITICAL CARE NURSE Gender Identity Not on file Sexual Orientation Not on file documented as of this encounter Miscellaneous Notes * Telephone Encounter - Miya Souza - 10/26/2024 1:49 PM CDT Medical Question/Miscellaneous Caller???s Concern: [facility] calling for Diagnostic code for sleep study to run medical necessity. LIBRARY CIRCULATION DEPARTMENT CHIEF found diagnostic code ( 47.33) on referral for Sleep Medicine under referral tab of patients chart. Does message need to be routed? No documented in this encounter Plan of Treatment Not on file documented as of this encounter Visit Diagnoses Not on filedocumented in this encounter Care Teams Pan Puller Relationship Specialty Start Date End Date Carmen Longoria MD [address] [facility] [address] [place] [address] PCP - General Internal Medicine 04/20/19 documented as of this encounter
--- OUTSIDE RECORDS SUMMARY | 2024-11-03 08:46 | XMS_ITS | Clinical Summary ---
Author Organization [facility] Address [address] [place] [address] Care Team Providers Care Assembler Final Name Role Phone Chata Robbins MD Unavailable [phone] Carmen Longoria MD Primary Care Provider [phone] Allergies Active Allergy Reactions Criticality Noted Date Comments Amoxicillin-Pot Clavulanate Diarrhea,Hallucinati ons,Nausea and Vomiting Medium 05/20/2013 Rosuvastatin Other (see comment) 10/15/2020 20 mg muscle aches Miconazole Unknown 11/03/2018 Niacin Unknown 11/03/2018 Medications naproxen 500 MG tablet Take 1 tablet by mouth 2 (two) times daily as needed. 0 8 Active vitamin B-12 1000 MCG tablet Take 1 tablet by mouth daily. Active aspirin EC 81 MG EC tablet Take 81 mg by mouth daily. Active cetirizine 10 MG tablet Take 1 tablet (10 mg total) by mouth daily. 8 Active Glucosamine-Cho ndroitin-MSM Tab Take 1,500 mg by mouth daily. 8 Active Cholecalciferol (VITAMIN D) 50 MCG (1999 UT) Tab Take 1 tablet by mouth daily. Active Multiple Vitamins-Minera ls (MULTIVITAMIN ADULT OR) Active valsartan-hydro CHLOROthiazide 320-25 MG tablet Take 1 tablet by mouth every morning. 1 Active MONTELUKAST 10 MG tabletIndicatio ns:KAMINSKI (dyspnea on exertion) TAKE 1 TABLET BY MOUTH EVERYDAY AT BEDTIME 90 tablet 1 2 Active amLODIPine (NORVASC) 10 MG tablet Take 1 tablet (10 mg total) by mouth daily. 3 Active atorvastatin (LIPITOR) 40 MG tablet Take 1 tablet (40 mg total) by mouth daily. 90 tablet 3 3 Active TRINTELLIX 20 MG tablet Take 1 tablet (20 mg total) by mouth daily. Active OZEMPIC 0.25/0.5 MG/DOSE 2 MG/1.5ML injection (PEN) Inject 0.5 mg into the skin every 7 days. 3 Active lurasidone (LATUDA) 20 MG tablet Take 1 tablet (20 mg total) by mouth daily. 4 Active Insulin Glargine, 1 Unit Dial, 300 UNIT/ML Solution Pen-injector Inject 22 Units into the skin daily. 4 Active sildenafil (VIAGRA) 100 MG tablet Take 1 tablet (100 mg total) by mouth daily as needed for Erectile Dysfunction. 10 tablet 2 4 Active doxazosin (CARDURA) 8 MG tablet Take 1 tablet (8 mg total) by mouth daily. 4 10/30/19 25 Active Problems Problem Noted Date Diagnosed Date Nonrheumatic aortic valve stenosis 06/11/2023 Obesity (BMI 30-39.9) 01/29/2021 Overview (05/06/2021): Last Assessment & Plan: BMI Follow-up includes: nutrition counseling. The patient was advised to exercise 5 times a week for 30 minutes each time. We discussed low calorie diet. Discussed lifestyle changes. Palpitations 06/19/2020 Chronic fatigue 06/11/2020 Chronic rhinitis 02/28/2020 Overview (07/06/2020): Last Assessment & Plan: Advised to take [place] or Zyrtec on daily basis. He can try as well Flonase nasal spray 1 spray daily. Functional diarrhea 08/22/2019 Recurrent major depressive disorder, in full rem ission 05/17/2019 Overview (07/06/2020): Last Assessment & Plan: Controlled on medications Mild episode of recurrent major depressive disor mari 05/17/2019 Overview (12/07/2023): Last Assessment & Plan: Controlled on Trintellix and Latuda Mixed hyperlipidemia 09/05/2018 Essential hypertension 06/02/2018 Murmur 06/02/2018 KAMINSKI (dyspnea on exertion) 06/02/2018 Insomnia 09/22/2017 Chronic nonseasonal allergic rhinitis due to robin kate 07/09/2017 Overview (07/06/2020): Last Assessment & Plan: Patient was advised to follow up with the ENT specialist. Continue to use said reason and Flonase. Continue to use a humidifier Fatty liver 07/30/2016 Overview (07/06/2020): Last Assessment & Plan: Discussed weight loss with diet and exercise to avoid complications of fatty liver like liver cirrhosis Controlled type 2 diabetes m ellitus without complication, without long-term current use of insulin ([facility]/HCC [facility]/HCC) 03/05/2016 Overview (07/06/2020): Last Assessment & Plan: Advised to have the blood work done. Advised to have eye exam. Continue low carb diet. We discussed the importance of weight loss. Dvrtclos of intest, part uns p, w/o perf or abscess w/o bleed 03/01/2016 Conductive hearing loss in left ear 02/01/2016 LUIS (obstructive sleep apnea) 10/24/2015 Overview (07/06/2020): Last Assessment & Plan: Patient was advised to have evaluation by sleep specialist and repeat sleep study but he declined any understands the risks Wound infection after surgery 07/04/2013 Diverticulitis of colon 05/20/2013 Overview (07/06/2020): Overview: Followed by Dr shahbaz Schulz 05/20/2013 Overview (07/06/2020): Last Assessment & Plan: Asymptomatic and the patient watches his diet Resolved Problems Problem Noted Date Diagnosed Date Resolved Date Encounter for hepatitis C sc reening test for low risk patient 08/22/2019 07/09/2020 Encounters Date Type Department Care Team Description 09/14/2024 10:00 AM SALES ENGINEER Office Visit [facility], [address] [address] Nelsy Ocampo APRN Hypertension; Lipids; Follow Up (9 month.) 09/14/2024 Travel from Last 3 Months Immunizations Name Administration Dates Next Due Flucelvax 6 Months+ (Prefill ed Syringe) 05/05/2017 Fluzone 6 Months+ Quad (0.5 mL Prefilled Syringe) 03/24/2020 Influenza (Generic) 03/24/2020,,05/12/2018,2015,05/28/2016,05/27/2016,05/21/2013,1 Influenza Adult (Generic) 06/04/2022,02/2021,03/24/2020,2019,10/08/2019,05/12/2018,05/05/2017,1 ,05/27/2016,05/27/2016 MODERNA COVID-19 (OSTEOPATHIC NEUROLOGIST JOSE A SIDRA), MRNA, LNP-S, PF, 50 MCG/ 0.25 ML DOSE 06/13/2021 PFIZER COVID-19 (ORIGINAL FORMULATION, PURPLE CAP) mRNA, LNP-S, PF, 30 MCG/0.3 ML DOSE 10/23/2020,10/03/2020 Pneumococcal (Pneumovax 23) 05/21/2013 Pneumococcal (Prevnar 20) 12/03/2022 Shingrix 09/29/2020,12/29/2017 Tdap (Generic) 12/26/2021,12/16/2015 Family History Medical History Relation Comments spinal impingement Father Heart Attack Maternal Grandfather tetanus Maternal Grandmother Cancer Mother rectal squamous cell from HPV. compression fx in back Mother joo, bipolar Mother pancreatic cancer Paternal Grandfather spanish imm igrant neck problems Sister Relation Status Comments Father Maternal Grandfather (Age 68) Maternal Grandmother (Age 22) Mother Alive Paternal Grandfather (Age 60) Paternal Grandmother (Age 103) Sister Alive Social History Tobacco Use Types Packs/Day Years Used Date Smoking Tobacco: Never Smokeless Tobacco: Never Tobacco Cessation:Counseling Given: Not Answered Alcohol Use Standard Drinks/Week Comments Yes 0 (1 standard drink = 0.6 oz pur e alcohol) 2 times a month PHQ-2 Answer Date Recorded PHQ-2 Score - If the patient scores above 3, please move on to questions 3-9 0 05/15/2021 Sex and Gender Information Value Date Recorded Sex Assigned at Male 09/14/2024 9:50 AM SALES ENGINEER Legal Sex Male 5:53 PM CDT Gender Identity Not on file Sexual Orientation Not on file 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 Not on file Not on file Not on f ile Last Filed Vital Signs Vital Sign Reading Time Taken Comments Blood Pressure 140/80 09/14/2024 9:53 AM SALES ENGINEER Pulse 76 09/14/2024 9:53 AM SALES ENGINEER Temperature 36.8 C (98.2 F) 05/15/2021 8:28 AM CDT Respiratory Rate 12 05/15/2021 8:28 AM CDT Oxygen Saturation 96% 09/14/2024 9:53 AM SALES ENGINEER Inhaled Oxygen Concentration - - Weight 110.2 kg (243 lb) 09/14/2024 9:53 AM SALES ENGINEER Height 172.7 cm (5' 8 ) 09/14/2024 9:53 AM SALES ENGINEER Body Mass Index 36.95 09/14/2024 9:53 AM SALES ENGINEER Plan of Treatment Upcoming Encounters Date Type Department Care Team (Late st Contact Info) Description 05/22/2025 10:30 AM CDT Appointment [facility] Non [place]vasive [place] [address] Nelsy Ocampo APRN [facility]. [address] [place], [place] [address] 06/01/2025 10:00 AM SALES ENGINEER Office Visit [facility], [address] [place], [place] [address] Chata Robbins MD [facility]. [address] [place], [place] [address] Health Maintenance Due Date Last Done Comments Colorectal Cancer Screening Colonoscopy (10 Years) 1955 Kidney Health Evaluation 1955 Diabetes: Retinopathy Eye Exam 12/03/1975 Hepatitis C 12/03/1975 RSV Immunization or 60+ Years (1 - Risk 60-74 years 1-dose series) 2017 Lipid Panel 12/22/2018 12/22/2017 Annual Medicare Wellness Visit 2022 PHQ-2 (Physician [place]) 07/27/2024 COVID-19 Vaccine ( season) 2024 05/17/2024, 06/23/2023, 06/13/2021, Additional history exists Hemoglobin A1C 02/03/2025 08/06/2024, 08/2023, 12/01/2022, Additional history exists DTaP, Tdap and Td Vaccines (3 - Td or Tdap) 12/27/2031 12/26/2021, 12/16/2015 Zoster Vaccines Completed 09/29/2020, 12/29/2017 Pneumococcal Vaccine: 65+ Years Completed 12/03/2022, 05/21/2013 Meningococcal B Vaccine Aged Out No l onger eligible based on patient's age to complete this topic Meningococcal Vaccine Aged Out No sindi maren eligible based on patient's age to complete this topic RSV Immunizations Under 20 Months Aged Out No longer eligible based on patient's age to complete this topic Procedures Procedure Name Priority Date/Time Associated Diagnosis Comments HEMOGLOBIN, GLYCOSYLATED Routine 10/11/2021 LIPID PANEL Routine 12/22/2017 from Last 3 Months or Most Recently Relevant to Health Maintenance Results * LIPID PANEL (12/22/2017) CHOLESTEROL 133 HDL 32 TRIGLYCERIDES 139 NON HDL CHOLESTEROL 101 LDL (CALCULATED) 77 12/22/2017 us Doc [facility] LABORATORY Edited Resul t - Final from Last 3 Months or Most Recently Relevant to Health Maintenance Insurance MEDICARE [facility] Care Teams Assembler Final Relationship Specialty Start Date End Date Carmen Longoria MD [address] [place] [id number] PCP - General INTERNAL MEDICINE 04/26/21 Chata Robbins MD [id number] [place] [address] Qamar Machine Sand Mixer CARDIOVASCULAR DISEASE 05/21/18
--- OUTSIDE RECORDS SUMMARY | 2024-11-03 08:46 | XMS_ITS | Encounter Summary ---
Author Organization [facility] Care Team Providers Care Mill Hand Name Role Phone Referral, Self Primary Care Provider Carmen Camarena MD Primary Care Provider [phone] Encounter Details Date Type Department Care Team (Latest Contact Info) Description 07/09/2017 Orders Only [facility] ProviderGrabiel MD [address] [place] [id number] Social History Tobacco Use Types Packs/Day Years Used Date Smoking Tobacco: Never Assessed Sex and Gender Information Value Date Recorded Sex Assigned at Not on file Legal Sex Male 8:57 AM AIR EXPORT AGENT Gender Identity Not on file Sexual Orientation Not on file documented as of this encounter Plan of Treatment Not on file documented as of this encounter Procedures Procedure Name Priority Date/Time Associated Diagnosis Comments AUDIOLOGY RECORD 07/09/2017 12:0 0 AM AIR EXPORT AGENT documented in this encounter Results * AUDIOLOGY RECORD (07/09/2017 12:00 AM AIR EXPORT AGENT) Narrative 07/09/2017 12:00 AM AIR EXPORT AGENT Ordered by an unspecified provider. us Historical Provider NURSING COMMUNICATION Fin al Result documented in this encounter Visit Diagnoses Not on filedocumented in this encounter Additional Health Concerns Infection Onset Date Last Indicated Resolved Time COVID: Suspected 01/18/2022 01/18/2022 01/18/2022 1:54 PM CDT documented as of this encounter Care Teams Mill Hand Relationship Specialty Start Date End Date Referral, Self PCP - General 03/10/18 04/19/19 Carmen Longoria MD [address] [place] [id number] PCP - General Internal Medicine 04/20/19 documented as of this encounter
--- OUTSIDE RECORDS SUMMARY | 2024-11-03 08:46 | XMS_ITS | Clinical Summary ---
Author Organization [facility] Address [address] [place] [address] Care Team Providers Care Vice Chair Name Role Phone Carmen Longoria MD Primary Care Provider [phone] Allergies Active Allergy Reactions Criticality Noted Date [...] 08/09/2024 Assessment & Plan (08/09/2024 1:40 PM APRICOT PACKER): Patient with trace bilateral leg edema most [...] AM CDT): Asymptomatic and followed by the tractor driver Onychomycosis 10/14/2021 Assessment & Plan (10/14/2021 3:36 PM CDT): Patient will be started on Diflucan 100 mg once a week for 4 months Morbid obesity 06/03/2021 Assessment & Plan (08/09/2024 1:38 PM APRICOT PACKER): BMI Follow-up includes: nutrition counseling. The patient [...] changes. Assessment & Plan (07/03/2022 7:58 AM APRICOT PACKER): BMI Follow-up includes: nutrition counseling. The patient [...] changes. Assessment & Plan (06/03/2021 11:38 AM APRICOT PACKER): BMI Follow-up includes: nutrition counseling. The patient was advised to exercise 5 times a week for 30 minutes each time. We discussed low calorie diet. Discussed lifestyle changes. Uncontrolled type 2 diabetes mellitus with hyper glycemia 03/20/2021 Assessment & Plan (08/09/2024 8:05 AM APRICOT PACKER): Hemoglobin A1c in July 2024 was 7.0. Continue current medications, discussed low carbohydrate diet, advised to exercise on regular basis, advised to have annual eye exam. We will continue to monitor. Assessment & Plan (07/03/2022 12:29 PM APRICOT PACKER): Continue current medications, will add mounjaro 2.5 [...] calorie diet and weight loss. Follow-up with installer technician Assessment & Plan (06/03/2021 11:37 AM APRICOT PACKER): Increase Tresiba to 35 units daily. Discussed [...] Functional diarrhea 08/22/2019 Encounter for hepatitis C md reening test for low risk patient 08/22/2019 Mild episode of recurrent major depressive disor mari 05/17/2019 Assessment & Plan (08/09/2024 8:05 AM APRICOT PACKER): Controlled on Trintellix and Latuda Assessment & Plan (03/29/2024 7:49 AM CDT): Controlled on Trintellix and Latuda Assessment & Plan (10/30/2023 8:51 AM CDT): Controlled on Trintellix and Latuda Assessment & Plan (04/03/2023 7:47 AM CDT): Controlled on Trintellix Assessment & Plan (12/03/2022 12:15 PM CDT): Controlled on Trintellix Assessment & Plan (07/03/2022 7:58 AM APRICOT PACKER): Controlled on current medications and no suicidal ideations Assessment & Plan (02/13/2022 10:49 AM CDT): Controlled on Trintellix Assessment & Plan (10/14/2021 3:35 PM CDT): Managed by the psychiatrist Assessment & Plan (06/03/2021 11:36 AM APRICOT PACKER): Managed by the Psychiatry Assessment & Plan [...] ideation Assessment & Plan (06/29/2020 11:41 AM APRICOT PACKER): Controlled on medications Assessment & Plan (02/28/2020 [...] Asymptomatic Assessment & Plan (06/29/2020 11:40 AM APRICOT PACKER): Patient was advised to follow up with [...] complications Assessment & Plan (07/03/2022 7:58 AM APRICOT PACKER): Encouraged weight loss with diet and exercise. Understands risk of liver cirrhosis. Assessment & Plan (02/13/2022 10:48 AM CDT): Encouraged weight loss with diet and exercise Assessment & Plan (10/14/2021 3:34 PM CDT): Discussed weight loss to avoid complications. Discussed exercise at least 5 days weekly. Discussed low calorie diet. Verbalized understand Assessment & Plan (06/29/2020 11:41 AM APRICOT PACKER): Discussed weight loss with diet and exercise [...] 10/24/2015 Assessment & Plan (08/09/2024 1:38 PM APRICOT PACKER): Patient with history of sleep apnea. He [...] etc.. Assessment & Plan (07/03/2022 7:58 AM APRICOT PACKER): Patient uses CPAP machine on regular basis Assessment & Plan (02/13/2022 10:49 AM CDT): The patient uses CPAP machine on regular basis Assessment & Plan (10/14/2021 3:35 PM CDT): Patient uses CPAP machine on regular basis Assessment & Plan (06/03/2021 11:36 AM APRICOT PACKER): Patient uses CPAP machine on regular basis Assessment & Plan (01/30/2021 3:11 PM CDT): Patient uses CPAP machine on regular basis Assessment & Plan (06/29/2020 11:42 AM APRICOT PACKER): Patient was advised to have evaluation by [...] 05/20/2013 Assessment & Plan (08/09/2024 8:05 AM APRICOT PACKER): Continue current medications. Discussed low-salt diet. Discussed [...] monitor Assessment & Plan (07/03/2022 12:28 PM APRICOT PACKER): Continue current medications. We will add Cardura [...] diet Assessment & Plan (06/03/2021 11:36 AM APRICOT PACKER): Increase amlodipine to 10 mg daily. Continue the other medications. Discussed low-salt diet. Discussed weight loss again. Assessment & Plan (01/30/2021 3:10 PM CDT): Continue current medications. Discussed low-salt diet. Discussed exercise on regular basis. Will continue to monitor Assessment & Plan (06/29/2020 11:41 AM APRICOT PACKER): Continue current medications. Discussed low-salt diet. Discussed [...] 05/20/2013 Assessment & Plan (08/09/2024 8:05 AM APRICOT PACKER): Controlled on current medications. Continue low-fat diet. [...] . Assessment & Plan (07/03/2022 7:58 AM APRICOT PACKER): Controlled on current medications. Continue low-fat diet. [...] exercise. Assessment & Plan (06/03/2021 11:36 AM APRICOT PACKER): Controlled on current medications. Continue low-fat diet. [...] . Assessment & Plan (06/29/2020 11:41 AM APRICOT PACKER): Low-fat diet and weight loss and advised to have the blood work done Assessment & Plan (02/28/2020 1:44 PM CDT): Patient will continue with low-fat diet and will order blood work before next visit Assessment & Plan (05/17/2019 3:27 PM CDT): Controlled on Crestor Assessment & Plan (01/05/2019 10:06 AM CDT): Controlled on current medications. Continue low-fat diet. Will continue to monitor . Encounters Date Type Department Care Team Description 10/26/2024 Telephone [facility] Internal Medicine [address] [place] [phone] Carmen Longoria MD Medical Question/Miscellaneous 08/10/2024 Telephone [facility] Internal Medicine [address] [place] [phone] Carmen Longoria MD 08/09/2024 1:00 PM APRICOT PACKER Office Visit [facility] Medical [facility] Internal Medicine [address] [place] [phone] Carmen Longoria MD Uncontrolled type 2 diabetes mellitus with hyperglycemia (HCC) (Primary Dx); LUIS (obstructive sleep apnea); Mild episode of recurrent major depressive disorder; Essential hypertension; BMI 37.0-37.9, adult; Morbid obesity (HCC); Bilateral leg edema 08/09/2024 Telephone [facility] Internal Medicine [address] [place] [phone] Carmen Longoria MD from Last 3 Months Immunizations Immunization Administration Dates Next Due COVID-19 mRNA (Dental Kidz) 0.3 m L (30 mcg) vaccine (12 [...] PPV23 05/21/2013 Tdap 12/26/2021,12/16/2015 ZOSTER Recombinant 09/29/2020,12/29/2017 Surgical History Surgery Date Site/Laterality Comments ANAL FISSURECTOMY 2006 COLECTOMY 07/27/2012 - 07/26/2013 KNEE SURGERY SHOULDER SURGERY right SHOULDER SURGERY 02/25/2020 - 03/26/2020 Left CARPAL TUNNEL RELEASE 05/27/2021 Bilateral Medical History Medical History Date Comments Essential hypertension HLD (hyperlipidemia) Other abnormal glucose Dvrtclos of intest, part unsp, 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 Gout Morbid obesity (HCC) LUIS (obstructive sleep apnea) H/O hemicolectomy Cerumen debris on tympanic membrane of left ear Conductive hearing loss in left ear Family History Medical History Relation Name Comments Hypertension Father Mental illness Mother Rectal cancer Mother Relation Name Status Comments Father Mother Alive Social History Tobacco Use Types Packs/Day [...] on file Legal Sex Male 8:57 AM APRICOT PACKER Gender Identity Not on file Sexual Orientation Not on file Obstetrics History Last Filed Vital Signs Vital Sign Reading Time Taken Comments Blood Pressure 122/70 08/09/2024 1:09 PM APRICOT PACKER Pulse 79 08/09/2024 1:09 PM APRICOT PACKER Temperature 36.8 C (98.3 F) 08/09/2024 1:09 PM APRICOT PACKER Respiratory Rate 16 08/09/2024 1:09 PM APRICOT PACKER Oxygen Saturation 97% 08/09/2024 1:09 PM APRICOT PACKER Inhaled Oxygen Concentration - - Weight 112.9 kg (249 lb) 08/09/2024 1:09 PM APRICOT PACKER Height 172.7 cm (5' 8 ) 08/09/2024 1:09 PM APRICOT PACKER Body Mass Index 37.86 08/09/2024 1:09 PM APRICOT PACKER Plan of Treatment Health Maintenance Due Date Last Done Comments Hepatitis B Screening 12/03[birth year]1975 Foot Exam 04/03/2024 04/03/2023, 01/25, 01/30/2021 Dilated Eye Exam 07/16/2024 07/16/2023, 03/2022, 04/03/2021, Additional history exists Covid-19 Vaccine (2023-08 5 season) 2024 05/17/2024, 06/23/2023, 06/09/2022, Additional history exists Hemoglobin A1C 02/03/2025 08/06/2024, 08/2023, 12/01/2022, Additional history exists Albumin Creatinine Ratio, Urine 08/06/2025 08/06/2024, 12/01/2022, 10/11/2021, Additional history exists Lipid Panel 08/06/2025 08/06/2024, 04/0 08/2023, 12/01/2022, Additional history exists eGFR 08/06/2025 08/06/2024, 04/0 08/2023, 12/01/2022, Additional history exists Depression Screening 08/09/2025 08/09/2024, 01/05/2024, 10/30/2023, Additional history exists Fall Risk Assessment 08/09/2025 08/09/2024, 01/05/2024, 10/30/2023, Additional history exists Well Visit 65+ 08/09/2025 08/09/2024 Prostate Cancer Screening-PSA 08/06/2026, 12/01/2022, 10/11/2021, Additional history exists Colon Cancer Screening-Colonoscopy 12/05/2027 12/04/2017 DTaP/Tdap/Td Vaccine (3 - Td or Tdap) 12/27/2031 12/26/2021, 12/16/2015 Colon Cancer Screening-CT Colonography Discontinued 12/04/2017 Colon Cancer Screening-DNA Stool Discontinued 12/05/19 Colon Cancer Screening-FIT Discontinued 12/04/2017 Colon Cancer Screening-Sigmoidoscopy Discontinued 12/04/2017 Hepatitis C Screening Completed 08/22/2019 Zoster Vaccine Completed 09/29/2020, 12/29/2017 Pneumococcal vaccine 65+ Completed 12/03/2022, 04/27 Influenza Vaccine Completed 05/17/2024, , 06/04/2022, Additional history exists Procedures Procedure Name Priority Date/Time Associated Diagnosis Comments PSA SCREEN Routine 08/06/2024 8:42 AM APRICOT PACKER Prostate cancer screening ALBUMIN CREATININE RATIO, URINE Routine 08/06/2024 8:42 AM APRICOT PACKER Controlled type 2 diabetes mellitus without complication, without long-term current use of insulin (HCC) HEMOGLOBIN A1C Routine 08/06/2024 8:42 AM APRICOT PACKER Controlled type 2 diabetes mellitus without complication, without long-term current use of insulin (HCC) LIPID PANEL Routine 08/06/2024 8:42 AM APRICOT PACKER Controlled type 2 diabetes mellitus without complication, without long-term current use of insulin (HCC) COMPREHENSIVE METABOLIC PANEL Routine 08/06/2024 8:42 AM APRICOT PACKER Controlled type 2 diabetes mellitus without complication, without long-term current use of insulin (HCC) TOTAL TESTOSTERONE Routine 08/06/2024 8: 41 AM APRICOT PACKER Controlled type 2 diabetes mellitus without complication, without long-term current use of insulin (HCC) DIABETES EYE EXAM Routine 07/16/2023 2:24 PM APRICOT PACKER DIABETIC FOOT EXAM Routine 01/30/2021 HEPATITIS C ANTIBODY Routine 08/22/2019 1:21 PM APRICOT PACKER Encounter for hepatitis C screening test for low risk patient COLONOSCOPY Routine 12/04/2017 from Last 3 Months or Most Recently Relevant to Health Maintenance Results * PSA screen (08/06/2024 8:42 AM APRICOT PACKER) PSA 0.23 < OR = 4.00 ng/mL [facility] Comment: The total PSA value from this [...] absence of disease. Blood 08/06/2024 8:42 AM APRICOT PACKER 08/06/2024 8:43 AM APRICOT PACKER Narrative [facility] - 08/07/2024 6:24 AM APRICOT PACKER FASTING:YES FASTING: YES us Carmen Longoria MD LAB BLOOD ORDERABLES Final Result [facility] [address] [place] [address] * (ABNORMAL) Albumin Creatinine Ratio, Urine (08/06/2024 8:42 AM APRICOT PACKER) Creatinine, ur 254 20 - 320 mg/dL [...] a diagnostic category. Urine 08/06/2024 8:42 AM APRICOT PACKER 08/06/2024 8:43 AM APRICOT PACKER Narrative [facility] - 08/07/2024 6:24 AM APRICOT PACKER FASTING:YES FASTING: YES Carmen Longoria MD LAB URINE ORDERABLES Final Result [facility] [address] [place] [address] * (ABNORMAL) Hemoglobin A1c (08/06/2024 8:42 AM APRICOT PACKER) Pathologist [facility] Hgb A1C 7.0(H) <5.7 % of total Hgb [facility] Comment: For someone without known diabetes, a [...] diabetes for children. Blood 08/06/2024 8:42 AM APRICOT PACKER 08/06/2024 8:43 AM APRICOT PACKER Narrative [facility] - 08/07/2024 6:24 AM APRICOT PACKER FASTING:YES FASTING: YES Carmen Longoria MD LAB BLOOD ORDERABLES Final Result [facility] [address] [place] [address] * (ABNORMAL) Lipid panel (08/06/2024 8:42 AM APRICOT PACKER) Cholesterol 130 <200 mg/dL [facility] [...] LDL-C. Medardo SS et al. MARCELA. 2013;310(19): 5499-7321 (http://education.ViperMed/faq/SIA071) Chol/HDL ratio 3.4 <5.0 (calc) [facility] Non-HDL, (LDL+VLDL) 92 <130 mg/dL (calc) [facility] Comment: For patients with diabetes plus 1 major ASCVD risk factor, treating to a non-HDL-C goal of <100 mg/dL (LDL-C of <70 mg/dL) is considered a therapeutic option. Blood 08/06/2024 8:42 AM APRICOT PACKER 08/06/2024 8:43 AM APRICOT PACKER Narrative [facility] - 08/07/2024 6:24 AM APRICOT PACKER FASTING:YES FASTING: YES Carmen Longoria MD LAB BLOOD ORDERABLES Final Result [facility] [address] [place] [address] * (ABNORMAL) Comprehensive metabolic panel (08/06/2024 8:42 AM APRICOT PACKER) Glucose 129(H) 65 - 99 mg/dL [facility] [...] [facility] Blood 08/06/2024 8:42 AM APRICOT PACKER 08/06/2024 8:43 AM APRICOT PACKER Narrative [facility] - 08/07/2024 6:24 AM APRICOT PACKER FASTING:YES FASTING: YES Carmen Longoria MD LAB BLOOD ORDERABLES Final Result [facility] [address] [facility] [place] [address] * Total testosterone (08/06/2024 8:41 AM APRICOT PACKER) Testosterone 418 250 - 827 ng/dL [facility] Blood 08/06/2024 8:41 AM APRICOT PACKER 08/06/2024 8:41 AM APRICOT PACKER Result [facility] Carmen Longoria MD LAB BLOOD ORDERABLES Final Result [facility] [id number] [place] [phone] * HM DIABETES EYE EXAM (07/16/2023 2:24 PM APRICOT PACKER) SCRIBED HM DIABETIC DILATED EYE EXAM Normal Result [facility] Historical Provider HEALTH MAINTENANCE Final Result * Diabetic Foot Exam (01/30/2021) Historical Provider MD HEALTH MAINTENANCE Final Result * Hepatitis C antibody (08/22/2019 1:21 PM APRICOT PACKER) Hep C Ab NON-REACT KY[facility]ERLY NON-REACT [facility]LY [facility] SIGNAL TO CUT-OFF 0.01 <1.00 [facility] [place] Comment: HCV antibody was non-reactive. There is no laboratory evidence of HCV infection. In most cases, no further action is required. However, if recent HCV exposure is suspected, a test for HCV RNA (test code 93278) is suggested. For additional information please refer to http://education.FitnessKeeper/faq/MSP81l0 (This link is being provided for informational/ educational purposes only.) Blood specimen (specimen) 08/22/2019 1:21 PM APRICOT PACKER 08/22/2019 1:21 PM APRICOT PACKER Narrative Resulting Agency Comment Performing Organization Information: Site ID: [place] Name: [facility] Address: [address] [place], [place] [address]ner [facility] [place] [address] Director: Daniel Mckinley D.O., MPH Joanne Fernandez [employer] TEACHER LAB MICROBIOLOGY - GENERAL OR DERABLES Final Result [facility] [place] * COLONOSCOPY (12/04/2017) Colonoscopy Normal Comment:hemicolectomy and he is followed by box finisher in [facility] Historical Provider MD HEALTH MAINTENANCE Final Result from Last 3 Months or Most Recently Relevant to Health Maintenance Insurance [facility] HMO [facility] PPO IN MEDICARE [place] MEDICARE [place] Advance Directives For more information, please contact: [phone] Documents on File Type Date Recorded Patient Deckhand Engineer Expl anation ADVANCE DIRECTIVE 12/07/2012 12:00 AM ADALID R OF TONAL REGULATOR FINANCIAL/MEDICAL Care Teams Vice Chair Relationship Specialty Start Date End Date Carmen Longoria MD [facility] [address] [place] [id number] PCP - General Internal Medicine 04/20/19
--- OUTSIDE RECORDS SUMMARY | 2024-11-03 08:46 | XMS_ITS | Encounter Summary ---
Author Organization [facility] Address [facility] [place] [address] Care Team Providers Care Emotionally Impaired Teacher Name Role Phone Carmen Longoria MD Primary Care Provider [phone] Chata Robbins MD Unavailable [phone] None, Provider Primary Care Provider Unavaila ble Carmen Longoria MD Primary Care Provider [phone] Encounter Details Date Type Department Care Team (Late st Contact Info) Description 09/03/2018 Abstract [facility], [facility] [address] [place] [address] Jovita Flores MA Social History Tobacco Use Types Packs/Day Years Used Date Smoking Tobacco: Never Smokeless Tobacco: Never Alcohol Use Standard Drinks/Week Comments Yes 0 (1 standard drink = 0.6 oz pur e alcohol) 2 times a month Sex and Gender Information Value Date Recorded Sex Assigned at Male 09/14/2024 9:50 AM AIRCRAFT PILOT Legal Sex Male 5:53 PM CDT Gender Identity Not on file Sexual Orientation Not on file 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 [address] [place] [address] 06/01/2025 10:00 AM AIRCRAFT PILOT Office Visit [facility] [address] [place] [address] Chata Robbins MD [facility]. [address] [place] [address] documented as of this encounter Procedures Procedure Name Priority Date/Time Associated Diagnosis Comments PROSTATE SPECIFIC ANTIGEN,TOTAL Routine 12/22/2017 COMPREHENSIVE METABOLIC PANEL Routine 12/22/2017 LIPID PANEL Routine 12/22/2017 HEMOGLOBIN, GLYCOSYLATED Routine 12/22/2017 documented in this encounter Results * PROSTATE SPECIFIC ANTIGEN,TOTAL (12/22/2017) PSA 0.2 12/22/2017 us Doc [facility]AT[facility] Final Result * HEMOGLOBIN, GLYCOSYLATED (12/22/2017) HGB A1C 6.0 12/22/2017 us Doc [facility] Edited Resul t - Final * (ABNORMAL) COMPREHENSIVE METABOLIC PANEL (12/22/2017) SODIUM S/P/B 141 POTASSIUM S/P/B 4.0 CO2 30 CHLORIDE S/P/B 104 GLUCOSE 124 mg/dL CALCIUM S/P/B 9.5 BUN 21 CREATININE S/P/B 0.88 0.7 - 1.3 EGFR AFR. AMER. 108 EGFR NON-AFR. AMER. 93(A) <=90 ALKALINE PHOSPHATASE S/P/B 55 ALT 48 AST 33 BILIRUBIN TOTAL S/P/B 0.8 ALBUMIN S/P/B 4.6 3.5 - 5.0 TOTAL PROTEIN S/P/B 7.0 GLOBULIN 2.4 12/22/2017 us Doc [facility] Edited Resul t - Final * LIPID PANEL (12/22/2017) CHOLESTEROL 133 HDL 32 TRIGLYCERIDES 139 NON HDL CHOLESTEROL 101 LDL (CALCULATED) 77 12/22/2017 us Doc [facility] Edited Resul t - Final documented in this encounter Visit Diagnoses Not on filedocumented in this encounter Additional Health Concerns Infection Onset Date Last Indicated Resolved Time COVID-19 Rule Out 2020 2020 12/03/2020 10:26 AM CDT documented as of this encounter Care Teams Emotionally Impaired Teacher Relationship Specialty Start Date End Date Carmen Longoria MD [address] [facility] [address] AHN [address] [place] [id number] PCP - General INTERNAL MEDICINE 05/07/18 01/22/21 None, MD Davy PCP - General 01/23/21 04/25/21 Carmen Longoria MD [facility] [address] AHN [address] [place] [id number] PCP - General INTERNAL MEDICINE 04/26/21 Chata Robbins MD [facility]. [facility] [address] [place] [address] [employer] Setting Out Machine Operator CARDIOVASCULAR DISEASE 05/21/18 documented as of this encounter
[2024-11-24 14:45] VITALS: BMI 35.7
--- NOTE | 2024-11-24 14:45 | WPDSLEEPSTUD ---
Sleep Study Date of Study: 11/03/24 Ordering Provider: Ilana Hagen Interpreting Physician: Jeanie Azar DO Sleep Study Type: Polysomnogram Height: 1.73 m Weight: 106.594 kg Body Mass Index: 35.7 Neck Circumference (inches): 19 [place]: 3 Reason for Sleep Study Previously diagnosed LUIS and tried CPAP in past. Not currently on treatment. Has snoring, daytime hypersomnia Sleep History The patient is a 68 year old male that had a sleep study ordered by her ENT for evaluation of sleep apnea. The patient constantly snores loudly enough that others complain. He rarely has trouble sleeping when he has a cold. He denies waking up gasping for air throughout the night. He frequently has breathing problems at night observed by himself or others. He rarely sweats excessively at night. He denies having heart palpitations or irregular heartbeats during the night. He occasionally falls asleep during the day but never while driving. He denies sleep paralysis, cataplexy and hypnagogic/ hypnopompic hallucinations. He frequently has trouble at school or work due to sleepiness. He denies feeling afraid of going to sleep. He denies having nightmares. He occasionally remembers his dreams. He rarely has thoughts racing through his mind. He frequently feels sad or depressed. He occasionally has anxiety. He rarely has muscular tension. He occasionally notices parts of his body jerk. He rarely kicks during the night. He denies having crawling and aching feelings in his legs but rarely has leg pain during the night. He denies grinding his teeth during sleep and denies awakening with morning jaw pain. He is rarely bothered by pain during the day and rarely awakened by pain during the night. He frequently wakes up feeling stiff in the morning. He rarely wakes up with sore or achy muscles. He denies waking up with pain in the neck, spine and other joints. He goes to bed at 8:30 p.m. on both weekdays and weekends. It takes him 5 minutes to fall asleep. He wakes up 4 times throughout the night to adjust position and he is able to fall back asleep within 5 minutes. He wakes up at 7:00 a.m. every morning. He typically gets 10 hours of sleep per night. He will stay in bed for 5 minutes after waking up in the morning. He currently lives alone. He denies consuming any caffeinated beverages within 2 hours bedtime. He denies engaging in physical exercise before bedtime. He will read before falling asleep. He denies watching television before falling asleep. He will take naps in afternoon or the evening but they are not refreshing. He consumes 2 caffeinated beverages per day. He denies tobacco and alcohol use. He does use an unspecified recreational drugs. Sleep Procedure A full night polysomnogram using the [employer] multi-channel system recorded the standard physiologic parameters including EEG, EOG, submentalis EMG, anterior tibialis EMG, EKG, body position, nasal and oral airflow using nasal pressure sensor and thermistor.? Respiratory parameters of chest and abdominal movements were recorded with Respiratory Inductance Plethysmography belts. Oxygen saturation was recorded by pulse oximetry. Video monitoring was also performed. Sleep stages, periodic limb movements, and EEG arousals were scored in 30 second epochs according to the criteria of the AASM Scoring Manual. The Apnea-Hypopnea Index was calculated using CMS guidelines for definition of hypopnea with 4% O2 desaturations while scoring respiratory events. Sleep Architecture The total recording time was 473.2 minutes.? The total sleep time was 316.0 minutes. Sleep latency was 27.6 minutes. REM latency was 219.5 minutes. Sleep efficiency was 66.8%. The patient had 75 awakenings for an awakening index of 14.2. Wake after sleep onset time was 129.5 minutes. The patient spent 70.5 minutes, 22.3% of total sleep time in Stage N1. The patient spent 165.5 minutes, 52.4% in Stage N2. The patient spent 6.0 minutes, 1.9% in Stage N3. The patient spent 74.0 minutes, 23.4% in Stage REM sleep. Respiratory Analysis The patient had 87 hypopneas, 53 obstructive apneas, 3 mixed apneas, and 12 central apneas for an overall Apnea Hypopnea Index of 29.4. The REM Apnea Hypopnea Index was 37.3. The NREM Apnea Hypopnea Index was 29.3. The patient had a Central Apnea Hypopnea Index of 2.3. There was no evidence of [place] Respirations. Arousals There were 317 total arousals for an arousal index of 60.2. There were 37 spontaneous arousals for an index of 7.0. There were 135 arousals due to respiratory events for an index of 25.6. There were 118 arousals due to periodic limb movements for an index of 22.4.? There were 28 arousals due to isolated limb movements for an index of 5.3. Periodic Limb Movements The patient had 58 isolated limb movements with an index of 11.0. The patient had 416 periodic limb movements with an index of 79.0, which is elevated (normal < 15). Patient had a total of 474 limb movements with a total limb movement index of 90.0. Oximetry Data The patient had an average oxygen saturation of 91.1% in sleep with a minimum oxygen saturation of 80.0% and a maximum oxygen saturation of 97.0%. The patient had 138 oxygen desaturations that were 4% or greater resulting in an Oxygen Desaturation Index of 26.2.? The patient spent 28.9 minutes, 6.2% of total sleep time with an oxygen saturation below 88%. Snoring Profile Moderate snoring was present throughout the study. Cardiac Profile The EKG showed normal sinus rhythm with rare PVCs. The patient had an average pulse rate of 66.4 bpm with a minimum pulse of rate of 55.0 bpm and a maximum pulse rate of 96.0 bpm.? EEG Profile No signs of seizure activity seen. Assessment and Plan Assessment and Plan (1) LUIS (obstructive sleep apnea): Code(s): G47.33 - Obstructive sleep apnea (adult) (pediatric) Status: Acute Assessment and Plan: The patient had an overall AHI of 29.4 with desaturation down to 80%. This is consistent with moderate sleep apnea. The patient spent 28.9 minutes, 6.2% of total recording time with an oxygen saturation below 88%. The amount of time the patient spent hypoxemic is out of proportion to the severity of his sleep apnea so he is not an ideal candidate for AutoPAP. I recommend that the patient have a CPAP titration study with the use of a hypnotic to ensure we obtain enough sleep data and find an optimal pressure setting. (2) PLMD (periodic limb movement disorder): Code(s): G47.61 - Periodic limb movement disorder Status: Acute Assessment and Plan: The patient had a significant number of limb movements during the study with the majority being periodic in nature. Approximately 25% of the periodic limb movements caused arousals in the patient's sleep. The patient's sleep history does not suggest Restless Leg Syndrome. I recommend that the patient have a serum ferritin drawn for evaluation of iron deficiency anemia. If the patient has a serum ferritin less than 75 ng/mL, I recommend starting a daily iron supplement and a Vitamin C supplement for better absorption. If the serum ferritin is greater than 75 ng/mL, I recommend starting a dopamine agonist and titrating the dose until symptoms resolve. There are nonpharmacological methods to treat limb movements including daily exercise, stretching calf muscles before bed, avoiding excessive amounts of caffeine and alcohol, vitamin B supplementation, magnesium lotion massaged into legs before bed, and use of a weighted blanket. Data The data obtained during this sleep study is adequate for interpretation. Certification This sleep study has been reviewed by a board certified sleep medicine physician.
== END 2024-11-04 07:09 | disposition home or self-care (01) ==
LOC: ANHCSM 08:39
PROVIDERS: PCP Internal Medicine
DX: G47.33 Obstructive sleep apnea (adult) (pediatric) (principal); G47.61 Periodic limb movement disorder
CPT/HCPCS: 95810